=== PATIENT | male | born 2000 | race American Indian/Alaskan Native ===

== ENCOUNTER 2021-11-05 02:47 | Emergency (ER) | payer SELFPAY ==
[2021-11-05] MEDS ORDERED: IBUPROFEN 600 MG TAB PO ONE (04:48)
[2021-11-05] MEDS ORDERED: predniSONE 20 MG TAB PO ONE (04:48)
[2021-11-05] MEDS ORDERED: hydrOXYzine PAMOATE 25 MG CAP PO ONE (04:48)
[2021-11-05 05:10] LABS: Bacteria,Urine 1+ /HPF (Negative); Bilirubin,Urine NEG (Negative); Blood,Urine NEG (Negative); Color,Urine Yellow (Yellow); Mucus,Urine FEW /HPF
[2021-11-05] MEDS ORDERED: LIDOCAINE-MPF (1%) 10 MG/1 ML VIAL 5 ML INFILTRATI ONE (05:23)
[2021-11-05] MEDS ORDERED: PENICILLIN G BENZATHINE 1.2 MILLION UNIT/2 ML INJ IM ONE (06:00)
--- NOTE | 2021-11-05 06:19 | Emergency Department Report ---
<LLOYD QUARLES - Last Filed: 11/05/21 06:15> ED Male HPI - General Chief complaint: Urogenital-Male Stated complaint: ITCHY RASH/SWOLLEN ANUS WARTS Source: patient Mode of arrival: Ambulatory Limitations: No Limitations - History of Present Illness Initial comments: Patient is a 21-year-old -[place] male with no past medical history who presents to the ED with persistent dysuria, urinary frequency and urgency, intermittent hematuria, and diffuse dry skin scabby rashes in the penis and diffusely in the body for over 2 months. Patient states that he was initially evaluated and treated at another hospital but was given a cream to apply on his skin which did not help. Patient states that in the last 5 days, the hematuria and dysuria has worsened and the rashes have also spread all over his body. Patient also complains of acute onset appearance of warts around his anus in the last 4 days. Patient denies testicular pain, fever, chills, nausea and vomiting, abdominal pain, headache, change in vision, dizziness, syncope, joint pains or cough and sore throat. MD Complaint: dysuria, groin pain, other (Diffuse body rashes; penile rashes and lesions) -: Gradual, month(s) (2) Location: penis Radiation: none Severity: moderate Quality: dull Consistency: constant Improves with: none Worsens with: none denies other symptoms, rash (Diffuse maculopapular lesions). denies: discharge, swelling, mass, urinary retention, blood in urine, dysuria, fever, nausea/vomiting, incontinence - Related Data Sexually active: Yes Previous Rx's Medication Instructions Recorded Last Taken Type Doxycycline Hyclate 100 mg PO Q12H #28 cap 11/05/21 Unknown Rx Ibuprofen [Motrin] 600 mg PO Q8H PRN #30 tablet 11/05/21 Unknown Rx diphenhydrAMINE [Benadryl CAP] 25 mg PO Q6HR PRN #30 capsule 11/05/21 Unknown Rx Allergies Allergy/AdvReac Type Severity Reaction Status Date / Time No Known Allergies Allergy Verified 11/05/21 03:05 ED Review of Systems Constitutional: denies: chills, fever Eyes: denies: eye pain, eye discharge, vision change ENT: denies: ear pain, throat pain Respiratory: denies: cough, shortness of breath, wheezing Cardiovascular: denies: chest pain, palpitations Endocrine: no symptoms reported Gastrointestinal: denies: abdominal pain, nausea, diarrhea Genitourinary: dysuria, hematuria, other (Penile lesions). denies: urgency Musculoskeletal: denies: back pain, joint swelling, arthralgia Skin: rash (Multiple penile lesions), lesions (Multiple penile lesions; anal warts), other (Diffuse dry lesions) Neurological: denies: headache, weakness, paresthesias Psychiatric: denies: anxiety, depression Hematological/Lymphatic: denies: easy bleeding, easy bruising ED Past Medical Hx - Past Medical History Previous Medical History?: No - Surgical History Past Surgical History?: No - Medications Home Medications: Home Medications Medication Instructions Recorded Confirmed Last Taken Type Doxycycline Hyclate 100 mg PO Q12H #28 cap 11/05/21 Unknown Rx Ibuprofen [Motrin] 600 mg PO Q8H PRN #30 tablet 11/05/21 Unknown Rx diphenhydrAMINE [Benadryl CAP] 25 mg PO Q6HR PRN #30 capsule 11/05/21 Unknown Rx ED Physical Exam - General Limitations: No Limitations General appearance: alert, in no apparent distress - Head Head exam: Present: atraumatic, normocephalic, normal inspection - Eye Eye exam: Present: normal appearance, PERRL, EOMI Pupils: Present: normal accommodation - ENT ENT exam: Present: normal exam, normal orophraynx, mucous membranes moist, TM's normal bilaterally, normal external ear exam - Neck Neck exam: Present: normal inspection, full ROM. Absent: tenderness - Respiratory Respiratory exam: Present: normal lung sounds bilaterally. Absent: respiratory distress, wheezes, chest wall tenderness, accessory muscle use, decreased breath sounds - Cardiovascular Cardiovascular Exam: Present: regular rate, normal rhythm, normal heart sounds. Absent: systolic murmur, diastolic murmur, rubs, gallop - GI/Abdominal GI/Abdominal exam: Present: soft, normal bowel sounds. 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 Absent: tenderness, CVA tenderness (R), muscle spasm, paraspinal tenderness - Neurological Exam Neurological exam: Present: alert, oriented X3, CN II-XII intact, normal gait, reflexes normal - Psychiatric Psychiatric exam: Present: normal affect, normal mood - Skin Skin exam: Present: warm, dry, intact, normal color, rash (Multiple diffuse dry scabby rashes and lesions; scabby nontender penile lesions), other (Thick anal warts) ED Medical Decision Making - Medical Decision Making This is a 21-year-old -[place] male with no past medical history who presents to the ED with persistent dysuria, urinary frequency and urgency, intermittent hematuria, and diffuse dry skin scabby rashes in the penis and diffusely in the body for over 2 months. Patient states that he was initially evaluated and treated at another hospital but was given a cream to apply on his skin which did not help. Patient states that in the last 5 days, the hematuria and dysuria has worsened and the rashes have also spread all over his body. Patient also complains of acute onset appearance of warts around his anus in the last 4 days. In the ED, patient is alert and oriented x3 and is not in any distress. Syphilis test was positive and urinalysis test was positive for acute urinary tract infection which in this patient's condition is likely due to STD specifically gonorrhea. Patient was treated in the ED with Rocephin 1 g intramuscular injection, and also given standard syphilis treatment with Bici llin LA 2,400,000 units intramuscular injection. Patient was advised to follow- up with the [facility] department for further STD testing including HIV and to ensure that his sexual partner also gets treated for the same at the [facility]. Patient verbalized understanding. Patient was therefore advised return to the ED immediately if symptoms get worse. 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 Therefore take medications as advised, drink plenty of fluids, follow-up with the [facility] for further STD testing including HIV. Ensure that your sexual partner also gets tested and treated at the health department to prevent further spread. Return to the ED immediately if symptoms get worse. Prescriptions: diphenhydrAMINE [Benadryl CAP] 25 mg PO Q6HR PRN #30 capsule PRN Reason: Itching Doxycycline Hyclate 100 mg PO Q12H #28 cap Ibuprofen [Motrin] 600 mg PO Q8H PRN #30 tablet PRN Reason: Pain Referrals: [facility] [Outside] - 3-5 Days Forms: STI Treatment and Prevention Time of Disposition: 06:23 Print Language: IRISH <FRANCISCO J JACKMAN U - Last Filed: 11/07/21 11:42> ED Review of Systems ROS: Stated complaint: ITCHY RASH/SWOLLEN ANUS WARTS Other details as noted in HPI ED Course Vital Signs 11/05/21 11/05/21 11/05/21 02:59 05:24 07:02 Temperature 98.6 F Pulse Rate 94 H 90 Respiratory 16 16 14 Rate Blood Pressure 113/79 116/92 [Right] O2 Sat by Pulse 98 100 Oximetry ED Medical Decision Making - Medical Decision Making I have reviewed the PA/FRONT END DRUPAL DEVELOPER's note and plan of care. I was available for consultation as needed at all times during the patient's visit in the emergency department but was not consulted on this case. I agree with the plan to return to the ER if the patient's symptoms worsen or do not improve. Critical care attestation.: If time is entered above; I have spent that time in minutes in the direct care of this critically ill patient, excluding procedure time.
[2021-11-05 07:02] VITALS: BP 116/92
== END 2021-11-05 07:02 | disposition home or self-care (01) ==
LOC: ED 02:47
DX: A63.0 Anogenital (venereal) warts (principal); A53.9 Syphilis, unspecified; N34.2 Other urethritis; A64 Unspecified sexually transmitted disease; Z79.899 Other long term (current) drug therapy
CPT/HCPCS: 36415; 81001; 86592; 86593; 86780; 87086; 96372; 99283; J0561; J0696; J3490